=== PATIENT | female | born 1940 | race Caucasian/White ===

== ENCOUNTER 2020-10-17 14:01 | Emergency (ER) | payer MEDICARE, OTHER ==
--- NOTE | 2020-10-17 15:02 | EDM.PDOC ---
ED HPI GENERAL MEDICAL PROBLEM - General Chief Complaint: Cardiovascular Problem Stated Complaint: RACING HEART, HIGH PULSE, DIZZINESS Time Seen by Provider: 10/17/20 14:45 Source of Information: Reports: Patient History Limitations: Reports: No Limitations - History of Present Illness INITIAL COMMENTS - FREE TEXT/NARRATIVE: 80-year-old female has had a busy morning, active in the heat and is trying to stay hydrated. She went into the clinic across the street for a podiatry check and she felt like her heart was beating heavily and racing and her pulse was over 120 so they sent her to the emergency room. She was not placed on the monitor, no EKG was done. She now feels better. No shortness of breath. She did had some mild chest heaviness. Onset: Unknown/Unsure Associated Symptoms: Reports: Chest Pain (Mild chest heaviness, no real pain). 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: Musculoskeletal History: Reports: Fracture Endocrine/Metabolic History: Reports: Hypothyroidism - Past Surgical History HEENT Surgical History: Reports: Cataract Surgery GI Surgical History: Reports: Colonoscopy Musculoskeletal Surgical History: Reports: Arthroscopic Knee Social & Family History - Tobacco Use Tobacco Use Status *Q: Never Tobacco User - Caffeine Use Caffeine Use: Reports: Coffee, Tea - Alcohol Use Days Per Week of Alcohol Use: 7 Number of Drinks Per Day: 1 Total Drinks Per Week: 7 - Recreational Drug Use Recreational Drug Use: No ED ROS GENERAL - Review of Systems Review Of Systems: See Below Constitutional: Denies: Fever, Chills HEENT: Denies: Vision Change Respiratory: Denies: Shortness of Breath Cardiovascular: Reports: Chest Pain, Palpitations GI/Abdominal: Denies: Nausea, Vomiting Skin: Reports: Pallor Neurological: Reports: No Symptoms ED EXAM, GENERAL - Physical Exam Exam: See Below Exam Limited By: No Limitations General Appearance: Alert, No Apparent Distress Eye Exam: Bilateral Eye: Normal Inspection Head: Atraumatic Neck: Supple, Non-Tender Respiratory/Chest: Lungs Clear Cardiovascular: Regular Rate, Rhythm, Tachycardia (Borderline tachycardia, pulse 102), Extra Beats GI/Abdominal: Soft, Non-Tender Extremities: Normal Inspection. No: Pedal Edema Neurological: Alert, Oriented Course - Vital Signs Last Recorded V/S: Last Vital Signs Temp 97.8 F 10/17/20 14:55 Pulse 87 10/17/20 14:55 Resp 18 10/17/20 14:55 BP 147/82 H 10/17/20 14:55 Pulse Ox 98 10/17/20 14:55 - Re-Assessments/Exams Free Text/Narrative Re-Assessment/Exam: 10/17/20 15:02 surgery tech shows normal sinus rhythm, borderline tachycardia. 10/17/20 15:35 Patient was monitored for over an hour, continued in normal sinus rhythm with a rate between 80 and 94, fairly frequent PACs but asymptomatic. She was encouraged to stay hydrated, increase activity as tolerated and return if worsening or concerns. Departure - Departure Time of Disposition: 16:28 Disposition: Home, Self-Care 01 Clinical Impression: Palpitations, Tachycardia, paroxysmal Instructions: Palpitations Referrals: PCP,None [Primary Care Provider] - Forms: ED Department Discharge Care Plan Goals: Concentrate on staying hydrated, increase activity as tolerated and return anytime if worsening or persistent symptoms. Consider rechecking in 2 to 3 days if not improving satisfactorily. Sepsis Event Note (ED) - Focused Exam Vital Signs: Vital Signs Temp Pulse Resp BP Pulse Ox 10/17/20 14:55 97.8 F 87 18 147/82 H 98
== END 2020-10-17 16:40 | disposition home or self-care (01) ==
LOC: JP.ED 14:01
DX: R00.2 Palpitations (principal); I47.9 Paroxysmal tachycardia, unspecified; E03.9 Hypothyroidism, unspecified; E78.00 Pure hypercholesterolemia, unspecified; Z79.899 Other long term (current) drug therapy
CPT/HCPCS: 99284

== ENCOUNTER 2022-11-23 04:20 | Emergency (ER) | payer MEDICARE, OTHER ==
[2022-11-23 05:39] LABS: BASOPHILS ABSOLUTE AUTO 0.04 K/uL (0.00-0.10); BASOPHILS PERCENT AUTO 0.4 % (0.1-1.3); EOSINOPHILS ABSOLUTE AUTO 0.24 K/uL (0.00-0.40); EOSINOPHILS PERCENT AUTO 2.6 % (0.0-5.4); HEMATOCRIT 35.1 % (34.3-46.0); IMMATURE GRAN ABSOLUTE AUTO 0.03 K/uL (0.00-0.23); IMMATURE GRAN PERCENT AUTO 0.3 % (0.0-0.7); LYMPHOCYTES PERCENT AUTO 19.7 % (11.4-47.7); MEAN CORPUSCULAR HEMOGLOBIN 33.1 pg (31.6-35.5); MEAN CORPUSCULAR HGB CONC 34.2 g/dL (31.6-35.5); MONOCYTES ABSOLUTE AUTO 0.94 K/uL (0.20-0.90); MONOCYTES PERCENT AUTO 10.3 % (3.3-12.6); NEUTROPHILS ABSOLUTE AUTO 6.08 K/uL (1.0-7.6); NEUTROPHILS PERCENT AUTO 66.7 % (40.0-78.1); PLATELET COUNT,PLT 235 K/uL (130-375); RED BLOOD CELL COUNT 3.62 M/uL (3.77-5.24); WHITE BLOOD CELL COUNT,WBC 9.1 K/uL (3.2-11.0)
== END 2022-11-23 06:17 | disposition home or self-care (01) ==
LOC: JP.ED 04:20
DX: M25.562 Pain in left knee (principal); M66.0 Rupture of popliteal cyst; E03.9 Hypothyroidism, unspecified; E78.00 Pure hypercholesterolemia, unspecified; Z79.899 Other long term (current) drug therapy
CPT/HCPCS: 36415; 73562-26-LT; 73562-LT; 85025; 86140; 99283